=== PATIENT | male | born 1975 | race Caucasian/White ===

== ENCOUNTER 2023-10-05 17:42 | Inpatient (IN) | payer BC, MEDICAID ==
[~2023-10-05] VITALS: Ht 167.6 cm; Wt 72.6 kg
[2023-10-05 17:46] VITALS: BP_SYST 120; PULSE 82; RESP 22; TEMP 100; O2SAT 94
[2023-10-05] MEDS ORDERED: PSYL575P22 GT (18:07)
[2023-10-05] MEDS ORDERED: POLY17PO4 PO (18:07)
[2023-10-05] MEDS ORDERED: SER25 GT (18:07)
[2023-10-05] MEDS ORDERED: NOR10 GT (18:07)
[2023-10-05] MEDS ORDERED: ROCPM1 IM (18:07)
[2023-10-05] MEDS ORDERED: ACET-2634 GT (18:07)
[2023-10-05] MEDS ORDERED: BISA10SU61 RC (18:07)
[2023-10-05] MEDS ORDERED: MODA100T31 GT (18:07)
[2023-10-05] MEDS ORDERED: HEPA500015 SUBCUT (18:07)
[2023-10-05] MEDS ORDERED: MELA5TAB12 GT (18:07)
[2023-10-05] MEDS ORDERED: ACET325T53 GT (18:07)
[2023-10-05] MEDS ORDERED: LEVETIRACETAM GT (18:07)
[2023-10-05] MEDS ORDERED: LISI40TA13 GT (18:07)
[2023-10-05] MEDS ORDERED: INSU100V53 SQ (18:07)
[2023-10-05] MEDS ORDERED: SENN8.6T19 GT (18:07)
[2023-10-05 19:19] LABS: BASOPHILS # (AUTO) 0.1 K/uL (0.0-0.2); BASOPHILS % (AUTO) 0.5 % (0.0-2.0); EOSINOPHILS # (AUTO) 0.1 K/uL (0.0-0.4); EOSINOPHILS % (AUTO) 0.4 % (0.0-4.0); HEMATOCRIT 27.4 % (36-54); HEMOGLOBIN 9.5 g/dL (14.0-18.0); LYMPHOCYTES # (AUTO) 1.3 K/uL (1.0-5.5); LYMPHOCYTES % (AUTO) 7.6 % (20.5-51.5); MEAN CORPUSCULAR HEMOGLOBIN 27 pg (27-31); MEAN CORPUSCULAR HGB CONC 35 % (32-36); MEAN CORPUSCULAR VOLUME 78 fL (79.0-98.0); MONOCYTES # (AUTO) 1.2 K/uL (0.0-1.0); MONOCYTES % (AUTO) 7.4 % (1.7-9.3); NEUTROPHILS # (AUTO) 14.1 K/uL (1.8-7.7); NEUTROPHILS % (AUTO) 84.1 % (40.0-70.0); PLATELET COUNT (AUTO) 164 K/uL (130-430); RED CELL DISTRIBUTION WIDTH 14.2 % (9.0-15.0); WHITE BLOOD COUNT (AUTO) 16.8 K/uL (4.8-10.8)
[2023-10-05 19:33] LABS: ANION GAP 5 (5-15); CALCIUM 8.2 mg/dL (8.4-11.0); CARBON DIOXIDE 31 mmol/L (23-29); CHLORIDE 95 mmol/L (98-107); CREATININE 0.92 mg/dL (0.55-1.30); GFR AFRICAN AMERICAN 113 mL/min (>90); GLUCOSE 230 mg/dL (74-106); POTASSIUM 3.8 mmol/L (3.5-5.1); SODIUM SERUM 131 mmol/L (136-145); UREA NITROGEN, BLOOD 25 mg/dL (8-21)
[2023-10-05 19:36] LABS: PROTHROMBIN TIME 9.9 SECS (9.5-12.5)
[2023-10-05 19:37] LABS: GFR NON AFRICAN-AMERICAN 94 mL/min (>90)
[2023-10-05 19:40] LABS: ALANINE AMINOTRANSFERASE 23 U/L (12-78); ALBUMIN 1.8 g/dL (3.4-4.8); ASPARTATE AMINOTRANSFERASE 9 U/L (10-37); BILIRUBIN,DIRECT 0.1 mg/dL (0.0-0.3); CREATINE KINASE, TOTAL 61 U/L (39-308); TOTAL BILIRUBIN 0.3 mg/dL (0.0-1.0); TOTAL PROTEIN, SERUM 6.8 g/dL (6.4-8.3)
[2023-10-05 20:15] LABS: BILIRUBIN,URINE NEGATIVE (NEGATIVE); BLOOD, URINE 2+ (NEGATIVE); COLOR,URINE YELLOW (YELLOW); GLUCOSE,URINE TRACE (NEGATIVE); KETONES,URINE NEGATIVE (NEGATIVE); LEUKOCYTE ESTERASE ,URINE 2+ (NEGATIVE); NITRITE, URINE POSITIVE (NEGATIVE); PROTEIN URINE 2+ (NEGATIVE)
[2023-10-05 20:17] LABS: CLARITY/URINE HAZY (CLEAR)
[2023-10-05 20:29] LABS: BACTERIA,URINE MODERATE /HPF (None Seen); YEAST,URINE Moderate /HPF (None Seen)
[2023-10-05 20:31] LABS: INFLUENZA TYPE A Negative (NEGATIVE); INFLUENZA TYPE B NEGATIVE (NEGATIVE)
[2023-10-05 20:34] LABS: COVID19 ANTIGEN SOFIA FIA NEGATIVE (NEGATIVE)
[2023-10-05] MEDS ORDERED: iohexoL 350 mgI/mL, 100 ML INFUS..BTL IV ONE (20:34)
[2023-10-05] MEDS ORDERED: ONDANSETRON HCL 4 MG/2 ML VIAL IVP PRN (20:45)
[2023-10-05] MEDS ORDERED: cefTRIAXone 1 GM VIAL ONE (21:15)
[2023-10-05] MEDS: cefTRIAXone 1 GM in D5W 50 ML IV ONE (21:26)
[2023-10-05] MEDS: NACL 0.9% 1,000 ML IV ONE (21:27)
[2023-10-05] MEDS: ALBUTEROL SULFATE 0.083% 2.5 MG/3 ML VIAL.NEB INH PRN (21:33)
[2023-10-05] MEDS: IPRATROPIUM BROM 0.5 MG/2.5 ML VIAL.NEB (ATROVENT) INH PRN (21:34)
[2023-10-05 21:35] VITALS: O2SAT 92
[2023-10-05] MEDS ORDERED: DEXTROSE 50% JECT 50 ML DISP.SYRIN IVP PRN (22:00)
[2023-10-05] MEDS: LORazepam 2 MG/ML VIAL IVP PRN (22:08)
[2023-10-05] MEDS: LevETIRAcetam 500 MG/5 ML UDC ORAL LIQUID GT SCH (23:34)
[2023-10-06] VITALS (8 sets, daily range): BP systolic 108–145; PULSE 69–85; RESP 16–18; TEMP 97.8–99.7; O2SAT 93–98
[2023-10-06] MEDS: LevETIRAcetam 500 MG/5 ML UDC ORAL LIQUID ONE (00:14)
[2023-10-06] MEDS: QUEtiapine FUMARATE 25 MG TABLET GT SCH (01:34)
[2023-10-06] MEDS: MORPHINE 2 MG/ML INJ. SYRINGE IVP PRN (01:35)
[2023-10-06] MEDS: NACL 0.9% 1,000 ML IV SCH (02:03)
[2023-10-06] MEDS: VANCOMYCIN HCL 1 GM/NS PREMIX 250 ML IV ONE (02:03)
[2023-10-06] MEDS: VANCOMYCIN HCL 1000 MG/VIAL IV ONE (02:04)
[2023-10-06] MEDS: INSULIN LISPRO SLIDING SCALE 100 UNITS/ML, 3 ML VIAL (humaLOG) SUBCUT PRN (02:59)
[2023-10-06 06:08] LABS: BASOPHILS # (AUTO) 0.1 K/uL (0.0-0.2); BASOPHILS % (AUTO) 0.4 % (0.0-2.0); EOSINOPHILS # (AUTO) 0.1 K/uL (0.0-0.4); EOSINOPHILS % (AUTO) 0.6 % (0.0-4.0); HEMATOCRIT 24.9 % (36-54); HEMOGLOBIN 8.5 g/dL (14.0-18.0); LYMPHOCYTES # (AUTO) 1.8 K/uL (1.0-5.5); LYMPHOCYTES % (AUTO) 13.4 % (20.5-51.5); MEAN CORPUSCULAR HEMOGLOBIN 27 pg (27-31); MEAN CORPUSCULAR HGB CONC 34 % (32-36); MEAN CORPUSCULAR VOLUME 79 fL (79.0-98.0); MONOCYTES # (AUTO) 1.1 K/uL (0.0-1.0); MONOCYTES % (AUTO) 8.1 % (1.7-9.3); NEUTROPHILS # (AUTO) 10.5 K/uL (1.8-7.7); NEUTROPHILS % (AUTO) 77.5 % (40.0-70.0); PLATELET COUNT (AUTO) 161 K/uL (130-430); RED BLOOD CELL COUNT(AUTO) 3.16 MIL/uL (4.2-6.2); RED CELL DISTRIBUTION WIDTH 13.6 % (9.0-15.0); WHITE BLOOD COUNT (AUTO) 13.5 K/uL (4.8-10.8)
[2023-10-06 06:30] LABS: HEMOGLOBIN A1C 7.16 % (<5.7)
[2023-10-06 06:46] LABS: CALCIUM 7.6 mg/dL (8.4-11.0); CREATININE 0.86 mg/dL (0.55-1.30); POTASSIUM 3.7 mmol/L (3.5-5.1)
[2023-10-06] MEDS: POLYETHYLENE GLYCOL 3350, 17 GM/ POWD.PACK GT SCH (09:39)
[2023-10-06] MEDS: CEFEPIME 2 GM in D5W 100 ML IV SCH (09:40)
[2023-10-06] MEDS: HEPARIN SODIUM,PORCINE 5,000 UNITS/ML VIAL SUBCUT SCH (09:43)
[2023-10-06] MEDS ORDERED: MELA10CA PO (10:38)
[2023-10-06] MEDS ORDERED: LEVE500T9 GT (10:38)
[2023-10-06] MEDS: VANCOMYCIN HCL 1,000 MG in NS 250 ML IV SCH (11:21)
[2023-10-07 00:02] VITALS: BP_SYST 138; PULSE 82; RESP 16; TEMP 98.6; O2SAT 95
[2023-10-07 06:40] LABS: BASOPHILS # (AUTO) 0.1 K/uL (0.0-0.2); BASOPHILS % (AUTO) 0.5 % (0.0-2.0); EOSINOPHILS # (AUTO) 0.1 K/uL (0.0-0.4); EOSINOPHILS % (AUTO) 1.3 % (0.0-4.0); HEMATOCRIT 26.8 % (36-54); HEMOGLOBIN 9.3 g/dL (14.0-18.0); LYMPHOCYTES # (AUTO) 1.4 K/uL (1.0-5.5); LYMPHOCYTES % (AUTO) 14.7 % (20.5-51.5); MEAN CORPUSCULAR HEMOGLOBIN 27 pg (27-31); MEAN CORPUSCULAR HGB CONC 35 % (32-36); MEAN CORPUSCULAR VOLUME 79 fL (79.0-98.0); MONOCYTES # (AUTO) 0.9 K/uL (0.0-1.0); MONOCYTES % (AUTO) 9.5 % (1.7-9.3); NEUTROPHILS # (AUTO) 7.2 K/uL (1.8-7.7); PLATELET COUNT (AUTO) 191 K/uL (130-430); RED BLOOD CELL COUNT(AUTO) 3.38 MIL/uL (4.2-6.2); RED CELL DISTRIBUTION WIDTH 13.8 % (9.0-15.0); WHITE BLOOD COUNT (AUTO) 9.8 K/uL (4.8-10.8)
[2023-10-07 07:03] LABS: CALCIUM 8.4 mg/dL (8.4-11.0); CREATININE 0.89 mg/dL (0.55-1.30); POTASSIUM 4.1 mmol/L (3.5-5.1)
[2023-10-07 08:00] VITALS: BP_SYST 141; PULSE 80; RESP 18; TEMP 97.7; O2SAT 93
[2023-10-07] MEDS: PANTOPRAZOLE SODIUM 40 MG/VIAL (PROTONIX) IVP SCH (09:28)
[2023-10-07 11:45] VITALS: BP_SYST 141; PULSE 77; RESP 17; TEMP 98.4; O2SAT 95
[2023-10-07 16:32] VITALS: BP_SYST 134; PULSE 68; RESP 17; TEMP 97.5; O2SAT 91
[2023-10-07 19:39] VITALS: BP_SYST 145; PULSE 73; RESP 16; TEMP 98.5; O2SAT 93
[2023-10-07 20:00] VITALS: O2SAT 93
[2023-10-08 00:18] VITALS: BP_SYST 130; PULSE 68; RESP 16; TEMP 97.9; O2SAT 91
[2023-10-08 07:53] LABS: BASOPHILS # (AUTO) 0.1 K/uL (0.0-0.2); BASOPHILS % (AUTO) 1.1 % (0.0-2.0); EOSINOPHILS # (AUTO) 0.2 K/uL (0.0-0.4); EOSINOPHILS % (AUTO) 1.4 % (0.0-4.0); HEMATOCRIT 27.2 % (36-54); HEMOGLOBIN 9.2 g/dL (14.0-18.0); LYMPHOCYTES # (AUTO) 1.5 K/uL (1.0-5.5); LYMPHOCYTES % (AUTO) 13.9 % (20.5-51.5); MEAN CORPUSCULAR HEMOGLOBIN 27 pg (27-31); MEAN CORPUSCULAR HGB CONC 34 % (32-36); MEAN CORPUSCULAR VOLUME 79 fL (79.0-98.0); MONOCYTES % (AUTO) 9.3 % (1.7-9.3); NEUTROPHILS % (AUTO) 74.3 % (40.0-70.0); PLATELET COUNT (AUTO) 225 K/uL (130-430); RED BLOOD CELL COUNT(AUTO) 3.44 MIL/uL (4.2-6.2); RED CELL DISTRIBUTION WIDTH 14.1 % (9.0-15.0); WHITE BLOOD COUNT (AUTO) 10.7 K/uL (4.8-10.8)
[2023-10-08 08:00] VITALS: BP_SYST 159; PULSE 75; RESP 18; TEMP 97.8; O2SAT 94
[2023-10-08 08:03] LABS: CALCIUM 8.5 mg/dL (8.4-11.0); CREATININE 0.85 mg/dL (0.55-1.30); POTASSIUM 4.3 mmol/L (3.5-5.1)
[2023-10-08] MEDS: FLUCONAZOLE 200 mg/ NS 100 ML IV SCH (09:16)
[2023-10-08 11:23] VITALS: BP_SYST 157; PULSE 71; RESP 16; TEMP 98.8; O2SAT 93
[2023-10-08 16:35] VITALS: BP_SYST 143; PULSE 74; RESP 17; TEMP 98; O2SAT 93
[2023-10-08 19:00] VITALS: BP_SYST 138; PULSE 74; RESP 16; TEMP 98.2; O2SAT 96
[2023-10-08 20:00] VITALS: BP_SYST 138; PULSE 76; RESP 16; TEMP 98.2; O2SAT 96
[2023-10-09] VITALS (8 sets, daily range): BP systolic 128–154; PULSE 64–68; RESP 16–17; TEMP 97.7–98.9; O2SAT 94–100
[2023-10-09] MEDS ORDERED: CEFE2FRO IV (09:06)
[2023-10-09] MEDS ORDERED: FLUC200P10 IV (09:06)
[2023-10-10] VITALS (7 sets, daily range): BP systolic 140–154; PULSE 61–67; RESP 16; TEMP 97–98; O2SAT 96
[2023-10-10 05:23] LABS: BASOPHILS % (AUTO) 0.6 % (0.0-2.0); EOSINOPHILS # (AUTO) 0.1 K/uL (0.0-0.4); EOSINOPHILS % (AUTO) 1.7 % (0.0-4.0); HEMATOCRIT 30.4 % (36-54); HEMOGLOBIN 10.6 g/dL (14.0-18.0); LYMPHOCYTES # (AUTO) 1.8 K/uL (1.0-5.5); LYMPHOCYTES % (AUTO) 21.6 % (20.5-51.5); MEAN CORPUSCULAR HEMOGLOBIN 27 pg (27-31); MEAN CORPUSCULAR HGB CONC 35 % (32-36); MEAN CORPUSCULAR VOLUME 78 fL (79.0-98.0); MONOCYTES # (AUTO) 0.8 K/uL (0.0-1.0); MONOCYTES % (AUTO) 9.1 % (1.7-9.3); NEUTROPHILS # (AUTO) 5.7 K/uL (1.8-7.7); PLATELET COUNT (AUTO) 288 K/uL (130-430); RED BLOOD CELL COUNT(AUTO) 3.89 MIL/uL (4.2-6.2); RED CELL DISTRIBUTION WIDTH 13.9 % (9.0-15.0); WHITE BLOOD COUNT (AUTO) 8.5 K/uL (4.8-10.8)
[2023-10-10 05:32] LABS: CALCIUM 8.7 mg/dL (8.4-11.0); CREATININE 0.76 mg/dL (0.55-1.30); POTASSIUM 3.8 mmol/L (3.5-5.1)
[2023-10-10 07:28] LABS: ERYTHROCYTE SEDIMENTATION RATE 84 MM/HR (0-15)
[2023-10-10] MEDS: hydrALAZINE HCL 20 MG/ML VIAL IVP ONE (16:43)
== END 2023-10-10 17:05 | DRG 872 ==
LOC: EDBD 17:42 → SED 17:42 → STU 20:39 → SMU 10-07 11:30
PROVIDERS: ADMIT Internal Medicine; ATTEND Internal Medicine
DX: A41.9 Sepsis, unspecified organism (principal); N39.0 Urinary tract infection, site not specified; D64.9 Anemia, unspecified; E11.65 Type 2 diabetes mellitus with hyperglycemia; I10 Essential (primary) hypertension; Z20.822 Contact with and (suspected) exposure to COVID-19; G40.909 Epilepsy, unspecified, not intractable, without status epilepticus; E78.5 Hyperlipidemia, unspecified; I25.10 Atherosclerotic heart disease of native coronary artery without angina pectoris; Z86.73 Personal history of transient ischemic attack (TIA), and cerebral infarction without residual deficits; Z79.899 Other long term (current) drug therapy
CPT/HCPCS: 36415; 71045; 71275; 80048; 80076; 81000; 81001; 81015; 82550; 82948; 83037; 83605; 83880; 84484; 85025; 85379; 85610; 85651; 85730; 87040; 87081; 87086; 93005; 93970; 94760; 99285; C9113; G0378; J0360; J0692; J0696; J1450; J1644; J2060; J2270; J3370; J7050; J7060; Q9967